=== PATIENT | female | born 2000 | race Asian ===

== ENCOUNTER → 2024-08-22 | Outpatient (CLI) | payer OTHER ==
[2024-08-23 08:07] LABS: MUMPS VIRUS IGG ANTIBODY 28.2 AU/mL (Immune >10.9); RUBELLA AB IGG-REFLAB 6.63 index (Immune >0.99); RUBEOLA (MEASLES) IGG 46.1 AU/mL (Immune >16.4); VARICELLA ZOSTER IGG AB TITER Reactive (Non Reactive)
== END | disposition home or self-care (01) ==
LOC: LABMN 08:43
PROVIDERS: ATTEND Internal Medicine
DX: Z02.1 Encounter for pre-employment examination (principal)
CPT/HCPCS: 86706; 86735; 86762; 86765; 86787